=== PATIENT | male | born 1990 | race Caucasian/White ===

== ENCOUNTER 2019-12-18 05:05 | Emergency (ER) | payer MEDICAID ==
[~2019-12-18] VITALS: Ht 195.6 cm; Wt 100.0 kg
[2019-12-18] MEDS ORDERED: acetaminophen 325mg tablet PO ONE (06:05)
[2019-12-18] MEDS ORDERED: ibuprofen tablet 400 MG TABLET PO ONE (06:05)
[2019-12-18] MEDS ORDERED: penicillin G benzathine 1.2 million unit/2ml syringe IM ONE (06:05)
[2019-12-18 06:35] VITALS: BP 152/89
== END 2019-12-18 06:52 | disposition home or self-care (01) ==
LOC: ER 05:06
DX: J02.9 Acute pharyngitis, unspecified (principal)
CPT/HCPCS: 96372; 99283; J0561